=== PATIENT | female | born 1975 | race Caucasian/White ===

== ENCOUNTER 2017-02-17 13:55 | Emergency (ER) | payer OTHER ==
[2017-02-17] MEDS ORDERED: diphenhydrAMINE 50 MG/ML VIAL ONE (16:09)
[2017-02-17] MEDS ORDERED: Famotidine/PF 20 mg/2ml Vial ONE ×2 (16:09→16:11)
[2017-02-17] MEDS ORDERED: methylPREDNISolone Sod Succ/PF 125 MG/2 ML VIAL ONE (16:09)
[2017-02-17 16:19] LABS: #Basophils 0.1 thou/uL (0.0-0.2); #Eosinphils 0.1 thou/uL (0.0-0.7); #Monocytes 0.3 thou/uL (0.11-0.59); #Neutrophils 4.9 thou/uL (1.40-6.50); %Basophils 0.9 % (0.0-1.0); %Eosinophils 0.7 % (0.0-10.0); %Lymphocytes 27.4 % (21.0-51.0); %Monocytes 3.5 % (0.0-10.0); Hematocrit 43.9 % (36.0-47.0); Mean Platelet Volume 7.5 fL (7.4-10.4); Red Blood Cell (RBC) Count 4.39 mill/uL (4.20-5.40); White Blood Cell (WBC) Count 7.2 thou/uL (4.8-10.8)
[2017-02-17 16:43] LABS: ALT (SGPT) 23 U/L (8-55); AST (SGOT) 26 U/L (5-34); Alkaline Phosphatase 39 U/L (40-150); Anion Gap 12 mmol/L (10-20); BUN (Urea Nitrogen) 11 mg/dL (7.0-18.7); Bilirubin, Total 0.4 mg/dL (0.2-1.2); Calc. Creatinine Clearance 0 mL/min (70-130); Calcium 9.6 mg/dL (7.8-10.44); Carbon Dioxide 29 mmol/L (22-29); Chloride 100 mmol/L (98-107); Estimated GFR-MDRD 81; Globulin 3.1 g/dL (2.4-3.5); Protein, Total 7.5 g/dL (6.0-8.3)
[2017-02-17] MEDS ORDERED: ISOVUE-370 76%-LOCM 1 ML ONE (17:22)
--- NOTE | 2017-02-17 18:11 | CT ---
CONTRAST ENHANCED CT OF SOFT TISSUE NECK: History: Trauma. FINDINGS/IMPRESSION: Chronic posterior osteophytes seen at C5-6 and anterior osteophytes seen at C6-7. No evidence of acut e fractures, subluxations, or bony lesions seen. POS: [facility]
== END 2017-02-17 18:18 | disposition home or self-care (01) ==
LOC: ERS 13:55
DX: M54.2 Cervicalgia (principal); F17.290 Nicotine dependence, other tobacco product, uncomplicated; Z79.891 Long term (current) use of opiate analgesic; Z79.899 Other long term (current) drug therapy
CPT/HCPCS: 70491; 80053; 84703; 85025; 96374; 96375; J1200; J2930; S0028